=== PATIENT | male | born 1970 | race Caucasian/White ===

== ENCOUNTER 2020-04-09 11:12 | Inpatient (IN) | payer OTHER ==
[~2020-04-09] VITALS: Ht 172.7 cm; Wt 85.7 kg
[2020-04-09] MEDS ORDERED: ONDANSETRON HCL 4MG/2ML INJ IV STA (12:31)
[2020-04-09] MEDS ORDERED: MORPHINE SULFATE 4 MG/ML CPJ (NOT FOR IM USE) IV STA (12:31)
[2020-04-09 12:51] LABS: BASOPHILS % 0.8 % (0.0-2.0); HEMATOCRIT. 43.6 % (42.0-52.0); HEMOGLOBIN. 15.3 g/dL (14.0-18.0); LYMPHOCYTES % 25.3 % (20.0-50.0); MEAN CORPUSCULAR HEMOGLOBIN 31.3 pg (28.0-32.0); MEAN CORPUSCULAR VOLUME 89.3 fL (80.0-94.0); MEAN PLATELET VOLUME 8.1 fl (7.4-10.4); MONOCYTES % 8.7 % (2.0-8.0); NEUTROPHILS % 62.2 % (40.0-76.0); PLATELET 275 x1000/uL (130-400); RED BLOOD CELL COUNT 4.88 mill/uL (4.7-6.1); RED CELL DISTRIBUTION WIDTH 13.5 % (11.6-14.6)
[2020-04-09 12:57] LABS: CHLORIDE 106 mEq/L (98-107)
[2020-04-09 13:06] LABS: PROTHROMBIN TIME 10.1 sec (9.6-11.0)
[2020-04-09] MEDS ORDERED: HYDRALAZINE 20MG/ML VIAL IV PRN (15:15)
[2020-04-09] MEDS ORDERED: CLONIDINE 0.1MG TABLET PO PRN (15:15)
[2020-04-09] MEDS ORDERED: DEXTROSE 50% WATER 50ML SYRINGE IV PRN (15:15)
[2020-04-09] MEDS ORDERED: IPRATROPIUM/ALBUTEROL 0.5-3(2.5)MG/3ML NEB NEB PRN (15:15)
[2020-04-09] MEDS ORDERED: ACETAMINOPHEN 325MG TABLET PO PRN (15:15)
[2020-04-09] MEDS ORDERED: MAGNESIUM/ALUMINUM HYDROXIDE/SIMETHICONE 30ML UDC PO PRN (15:15)
[2020-04-09] MEDS ORDERED: DIPHENHYDRAMINE 50MG/ML VIAL IV PRN (15:15)
[2020-04-09] MEDS ORDERED: GUAIFENESIN 200MG/10ML SUGAR FREE UDC PO PRN (15:15)
[2020-04-09] MEDS ORDERED: LORAZEPAM 2MG/ML CPJ IV PRN (15:15)
[2020-04-09] MEDS ORDERED: ENOXAPARIN 40MG/0.4ML SYR SUBCUT SCH (16:00)
[2020-04-09] MEDS: INSULIN LISPRO 100 UNITS/ML SUBCUT SCH ×2 (18:20→21:00)
[2020-04-09] MEDS: MORPHINE SULFATE 2 MG/ML CPJ (NOT FOR IM USE) IV PRN (18:46)
[2020-04-09] MEDS: ONDANSETRON HCL 4MG/2ML INJ IV PRN (18:47)
[2020-04-09] MEDS: BLOOD SUGAR DIAGNOSTIC STRIP TEST SCH ×2 (21:00→21:23)
[2020-04-09] MEDS ORDERED: HYDRALAZINE 10 MG in SODIUM CHLORIDE 0.9% 49.5 ML IV PRN (22:30)
[2020-04-09 23:50] VITALS: BP 153/85
[2020-04-10] VITALS (53 sets, daily range): BP systolic 60–153; BP diastolic 33–85
[2020-04-10] MEDS ORDERED: GLIP10TA10 PO (01:36)
[2020-04-10] MEDS ORDERED: SIMV-46 PO (01:36)
[2020-04-10] MEDS ORDERED: [UNRECOGNIZED DRUG - OTHER] SQ (01:36)
[2020-04-10] MEDS ORDERED: BENA5TAB6 PO (01:36)
[2020-04-10] MEDS ORDERED: NAP5EC PO (01:36)
[2020-04-10] MEDS ORDERED: METF-816 PO (01:36)
[2020-04-10] MEDS ORDERED: TAMS-11 PO (01:36)
[2020-04-10] MEDS ORDERED: METH-612 PO (01:36)
[2020-04-10] MEDS ORDERED: METO-396 PO (01:36)
[2020-04-10] MEDS: DEXAMETHASONE 4MG/ML 1ML VIAL IV SCH ×4 (01:44→17:32)
[2020-04-10] MEDS: MORPHINE SULFATE 2 MG/ML CPJ (NOT FOR IM USE) IV PRN ×2 (01:45→05:44)
[2020-04-10] MEDS: SODIUM CHLORIDE 0.9% INJ 3ML FLUSH IVF SCH ×3 (02:33→14:41)
[2020-04-10] MEDS: BLOOD SUGAR DIAGNOSTIC STRIP TEST SCH ×4 (05:44→21:45)
[2020-04-10 06:19] LABS: BASOPHILS % 0.4 % (0.0-2.0); EOSINOPHILS % 1.1 % (0.0-5.0); HEMATOCRIT. 44.2 % (42.0-52.0); HEMOGLOBIN. 15.6 g/dL (14.0-18.0); LYMPHOCYTES % 13.1 % (20.0-50.0); MEAN CORPUSCULAR HEMOGLOBIN 31.5 pg (28.0-32.0); MEAN CORPUSCULAR VOLUME 89.3 fL (80.0-94.0); MEAN PLATELET VOLUME 8.6 fl (7.4-10.4); MONOCYTES % 3.4 % (2.0-8.0); PLATELET 248 x1000/uL (130-400); RED BLOOD CELL COUNT 4.95 mill/uL (4.7-6.1)
[2020-04-10 06:25] LABS: CHLORIDE 104 mEq/L (98-107)
[2020-04-10] MEDS ORDERED: THROMBIN (BOVINE) 5000 UNITS/VIAL TOP ONE ×4 (07:18→12:41)
[2020-04-10] MEDS ORDERED: BACITRACIN 50,000 UNITS/VIAL ONE ×2 (07:19→07:56)
[2020-04-10] MEDS ORDERED: LIDOCAINE HCL/EPINEPHRINE 1%-EPI 1:100,000 20 ML VIAL ONE ×2 (07:19→07:56)
[2020-04-10] MEDS ORDERED: NORMAL SALINE 0.9% 10 ML SYR ONE (07:56)
[2020-04-10] MEDS ORDERED: ROCURONIUM BROMIDE 10MG/ML VIAL 5ML IV ONE ×2 (10:57→11:52)
[2020-04-10] MEDS ORDERED: MIDAZOLAM HCL 2 MG/2 ML VIAL ONE (10:57)
[2020-04-10] MEDS ORDERED: FENTANYL CITRATE/PF 50MCG/ML 2ML VIAL ONE (10:57)
[2020-04-10] MEDS ORDERED: PROPOFOL 200MG/20ML VIAL IV ONE (10:58)
[2020-04-10] MEDS ORDERED: DEXT 5%/0.9% NACL 1,000 ML IV SCH (11:30)
[2020-04-10] MEDS ORDERED: ONDANSETRON HCL 4MG/2ML INJ ONE (11:51)
[2020-04-10] MEDS ORDERED: LIDOCAINE HCL/PF 1% 10 MG/ML 5ML VIAL ONE (11:51)
[2020-04-10] MEDS ORDERED: SUCCINYLCHOLINE CHLORIDE 200MG/10ML IV ONE (11:51)
[2020-04-10] MEDS ORDERED: ALBUMIN HUMAN 12.5G/250ML (5%) IV ONE ×2 (12:41→12:59)
[2020-04-10] MEDS: INSULIN LISPRO 100 UNITS/ML SUBCUT SCH ×3 (12:50→22:18)
[2020-04-10] MEDS ORDERED: GLYCOPYRROLATE 0.2 MG/ML 2ML VIAL ONE (13:11)
[2020-04-10] MEDS ORDERED: HYDRALAZINE 20MG/ML VIAL IV PRN (13:45)
[2020-04-10] MEDS ORDERED: NICARDIPINE 100 MG in SODIUM CHLORIDE 0.9% 60 ML IV PRN (14:00)
[2020-04-10] MEDS ORDERED: CEFAZOLIN SODIUM 1000MG/VIAL IV SCH (14:00)
[2020-04-10] MEDS: CEFAZOLIN 1000MG PREMIX 50 ML IV SCH (17:11)
[2020-04-10] MEDS: MORPHINE SULFATE 4 MG/ML CPJ (NOT FOR IM USE) IV PRN (17:56)
[2020-04-10 20:39] LABS: HEMATOCRIT 30.8 % (42.0-52.0); HEMOGLOBIN 10.7 g/dL (14.0-18.0)
[2020-04-11] VITALS (51 sets, daily range): BP systolic 95–154; BP diastolic 43–84
[2020-04-11] MEDS: CEFAZOLIN 1000MG PREMIX 50 ML IV SCH ×3 (00:11→17:41)
[2020-04-11] MEDS: SODIUM CHLORIDE 0.9% 1,000 ML IV SCH ×3 (00:11→12:39)
[2020-04-11 04:53] LABS: CHLORIDE 113 mEq/L (98-107)
[2020-04-11 05:04] LABS: HEMOGLOBIN. 9.9 g/dL (14.0-18.0); MEAN CORPUSCULAR HEMOGLOBIN 31.7 pg (28.0-32.0); MEAN PLATELET VOLUME 8.5 fl (7.4-10.4); PLATELET 178 x1000/uL (130-400); RED BLOOD CELL COUNT 3.11 mill/uL (4.7-6.1); RED CELL DISTRIBUTION WIDTH 13.3 % (11.6-14.6)
[2020-04-11] MEDS: ONDANSETRON HCL 4MG/2ML INJ IV PRN (05:34)
[2020-04-11] MEDS: MORPHINE SULFATE 4 MG/ML CPJ (NOT FOR IM USE) IV PRN (05:35)
[2020-04-11] MEDS: BLOOD SUGAR DIAGNOSTIC STRIP TEST SCH ×4 (06:25→20:46)
[2020-04-11] MEDS: DEXAMETHASONE 4MG/ML 1ML VIAL IV SCH ×3 (06:29→17:42)
[2020-04-11] MEDS: INSULIN LISPRO 100 UNITS/ML SUBCUT SCH ×4 (06:30→21:06)
[2020-04-11] MEDS: MORPHINE SULFATE 2 MG/ML CPJ (NOT FOR IM USE) IV PRN ×3 (09:01→21:52)
[2020-04-11 09:51] LABS: PLATELET ESTIMATE NORMAL
[2020-04-11] MEDS ORDERED: HYDRALAZINE 10 MG in SODIUM CHLORIDE 0.9% 49.5 ML IV PRN (14:30)
[2020-04-11] MEDS: METOPROLOL TARTRATE 25MG TABLET PO SCH ×2 (15:36→21:15)
[2020-04-11] MEDS: BENAZEPRIL 5MG TABLET PO SCH (17:44)
[2020-04-12] MEDS: CEFAZOLIN 1000MG PREMIX 50 ML IV SCH ×3 (01:09→15:41)
[2020-04-12] MEDS: DEXAMETHASONE 4MG/ML 1ML VIAL IV SCH ×3 (01:11→12:00)
[2020-04-12] MEDS: SODIUM CHLORIDE 0.9% 1,000 ML IV SCH ×4 (01:29→17:40)
[2020-04-12] MEDS: MORPHINE SULFATE 2 MG/ML CPJ (NOT FOR IM USE) IV PRN ×4 (02:36→21:50)
[2020-04-12 04:00] VITALS: BP 109/73
[2020-04-12] MEDS: BLOOD SUGAR DIAGNOSTIC STRIP TEST SCH ×4 (06:23→21:46)
[2020-04-12 08:00] VITALS: BP 120/70
[2020-04-12] MEDS: BENAZEPRIL 5MG TABLET PO SCH (08:28)
[2020-04-12] MEDS: METOPROLOL TARTRATE 25MG TABLET PO SCH ×2 (08:29→20:53)
[2020-04-12] MEDS: INSULIN LISPRO 100 UNITS/ML SUBCUT SCH ×4 (08:30→21:47)
[2020-04-12 12:00] VITALS: BP 119/72
[2020-04-12 16:00] VITALS: BP 123/72
[2020-04-12 20:00] VITALS: BP 130/71
[2020-04-13] VITALS: BP 125/74
[2020-04-13] MEDS: SODIUM CHLORIDE 0.9% 1,000 ML IV SCH ×3 (01:44→18:08)
[2020-04-13] MEDS: MORPHINE SULFATE 2 MG/ML CPJ (NOT FOR IM USE) IV PRN ×2 (01:50→06:46)
[2020-04-13 04:00] VITALS: BP 135/74
[2020-04-13 06:30] LABS: BASOPHILS % 0.3 % (0.0-2.0); EOSINOPHILS % 1.1 % (0.0-5.0); HEMATOCRIT. 28.1 % (42.0-52.0); HEMOGLOBIN. 9.8 g/dL (14.0-18.0); MEAN CORPUSCULAR HEMOGLOBIN 31.7 pg (28.0-32.0); MEAN CORPUSCULAR VOLUME 90.4 fL (80.0-94.0); MEAN PLATELET VOLUME 8.6 fl (7.4-10.4); MONOCYTES % 8.6 % (2.0-8.0); PLATELET 190 x1000/uL (130-400); RED CELL DISTRIBUTION WIDTH 13.2 % (11.6-14.6)
[2020-04-13 06:34] LABS: CHLORIDE 109 mEq/L (98-107)
[2020-04-13] MEDS: BLOOD SUGAR DIAGNOSTIC STRIP TEST SCH ×4 (07:04→21:06)
[2020-04-13] MEDS: INSULIN LISPRO 100 UNITS/ML SUBCUT SCH ×4 (07:25→21:20)
[2020-04-13] MEDS: METOPROLOL TARTRATE 25MG TABLET PO SCH ×2 (08:32→21:06)
[2020-04-13] MEDS: BENAZEPRIL 5MG TABLET PO SCH (08:33)
[2020-04-13] MEDS ORDERED: POTASSIUM CHLORIDE 20MEQ TABLET SR PO NR (09:00)
[2020-04-13] MEDS: HYDROCODONE/ACETAMINOPHEN 10/325MG TABLET PO PRN ×3 (11:34→21:06)
[2020-04-13 12:00] VITALS: BP 117/52
[2020-04-13 16:00] VITALS: BP 117/79
[2020-04-13 20:00] VITALS: BP 133/73
[2020-04-14] VITALS: BP 94/52
[2020-04-14] MEDS: HYDROCODONE/ACETAMINOPHEN 10/325MG TABLET PO PRN ×3 (00:36→08:26)
[2020-04-14 04:00] VITALS: BP 132/76
[2020-04-14] MEDS: SODIUM CHLORIDE 0.9% 1,000 ML IV SCH (06:36)
[2020-04-14] MEDS: BLOOD SUGAR DIAGNOSTIC STRIP TEST SCH ×4 (07:26→20:22)
[2020-04-14 08:00] VITALS: BP 112/65
[2020-04-14] MEDS: BENAZEPRIL 5MG TABLET PO SCH (08:25)
[2020-04-14] MEDS: METOPROLOL TARTRATE 25MG TABLET PO SCH ×2 (08:26→20:22)
[2020-04-14] MEDS: DOCUSATE SODIUM 100MG CAPSULE PO PRN (08:26)
[2020-04-14] MEDS: INSULIN LISPRO 100 UNITS/ML SUBCUT SCH ×4 (08:27→20:48)
[2020-04-14 12:00] VITALS: BP 119/64
[2020-04-14] MEDS: MORPHINE SULFATE 4 MG/ML CPJ (NOT FOR IM USE) IV PRN (15:37)
[2020-04-14 16:00] VITALS: BP 129/74
[2020-04-14 20:00] VITALS: BP 121/60
[2020-04-14] MEDS: MORPHINE SULFATE 2 MG/ML CPJ (NOT FOR IM USE) IV PRN (20:23)
[2020-04-15] VITALS: BP 146/75
[2020-04-15] MEDS: MORPHINE SULFATE 2 MG/ML CPJ (NOT FOR IM USE) IV PRN ×5 (00:22→19:46)
[2020-04-15 04:00] VITALS: BP 125/70
[2020-04-15] MEDS: BLOOD SUGAR DIAGNOSTIC STRIP TEST SCH ×4 (06:31→21:47)
[2020-04-15 08:00] VITALS: BP 124/71
[2020-04-15] MEDS: BENAZEPRIL 5MG TABLET PO SCH (09:01)
[2020-04-15] MEDS: METOPROLOL TARTRATE 25MG TABLET PO SCH ×2 (09:02→21:40)
[2020-04-15] MEDS: INSULIN LISPRO 100 UNITS/ML SUBCUT SCH ×4 (09:37→22:31)
[2020-04-15 12:00] VITALS: BP 117/70
[2020-04-15 16:00] VITALS: BP 132/83
[2020-04-15 20:00] VITALS: BP 115/77
[2020-04-15] MEDS: HYDROCODONE/ACETAMINOPHEN 10/325MG TABLET PO PRN (23:37)
[2020-04-16] VITALS: BP 108/97
[2020-04-16 04:00] VITALS: BP 107/68
[2020-04-16] MEDS: BLOOD SUGAR DIAGNOSTIC STRIP TEST SCH ×4 (07:46→21:43)
[2020-04-16 08:00] VITALS: BP 108/69
[2020-04-16] MEDS: DOCUSATE SODIUM 100MG CAPSULE PO PRN (08:17)
[2020-04-16] MEDS: HYDROCODONE/ACETAMINOPHEN 10/325MG TABLET PO PRN ×3 (08:19→20:18)
[2020-04-16] MEDS: INSULIN LISPRO 100 UNITS/ML SUBCUT SCH ×4 (08:34→21:44)
[2020-04-16] MEDS: SODIUM CHLORIDE 0.9% 1,000 ML IV SCH (08:57)
[2020-04-16] MEDS: BENAZEPRIL 5MG TABLET PO SCH (08:58)
[2020-04-16] MEDS: METOPROLOL TARTRATE 25MG TABLET PO SCH ×2 (08:58→21:44)
[2020-04-16 12:00] VITALS: BP 111/74
[2020-04-16 16:00] VITALS: BP 110/66
[2020-04-16] MEDS ORDERED: NA PHOS,M-B/NA PHOS,DI-BA ENEMA 118ML PR PRN (17:45)
[2020-04-16] MEDS: LACTULOSE 20G/30ML UDC PO SCH ×2 (18:09→21:46)
[2020-04-16 20:00] VITALS: BP 115/68
[2020-04-17] VITALS: BP 128/77
[2020-04-17] MEDS: HYDROCODONE/ACETAMINOPHEN 10/325MG TABLET PO PRN ×4 (01:00→19:18)
[2020-04-17] MEDS: LACTULOSE 20G/30ML UDC PO SCH (02:00)
[2020-04-17 04:00] VITALS: BP 127/85
[2020-04-17] MEDS: BLOOD SUGAR DIAGNOSTIC STRIP TEST SCH ×4 (06:38→21:45)
[2020-04-17] MEDS: INSULIN LISPRO 100 UNITS/ML SUBCUT SCH ×4 (07:50→21:48)
[2020-04-17 08:00] VITALS: BP 106/59
[2020-04-17] MEDS: BISACODYL 10MG SUPP PR SCH (09:00)
[2020-04-17 12:00] VITALS: BP_SYST 122; BP_SYST 130; BP_DIAS 68; BP_DIAS 85
[2020-04-17] MEDS: METOPROLOL TARTRATE 25MG TABLET PO SCH ×2 (12:52→20:38)
[2020-04-17] MEDS: BENAZEPRIL 5MG TABLET PO SCH (12:53)
[2020-04-17 16:00] VITALS: BP 130/85
[2020-04-17 20:00] VITALS: BP 110/62
[2020-04-17] MEDS: SODIUM CHLORIDE 0.9% 1,000 ML IV SCH (20:41)
[2020-04-18] VITALS: BP 115/52
[2020-04-18] MEDS: HYDROCODONE/ACETAMINOPHEN 10/325MG TABLET PO PRN ×5 (00:53→16:12)
[2020-04-18 04:00] VITALS: BP 138/77
[2020-04-18 07:17] LABS: BASOPHILS % 0.9 % (0.0-2.0); EOSINOPHILS % 5.6 % (0.0-5.0); HEMATOCRIT. 29.5 % (42.0-52.0); HEMOGLOBIN. 10.4 g/dL (14.0-18.0); LYMPHOCYTES % 27.9 % (20.0-50.0); MEAN CORPUSCULAR HEMOGLOBIN 31.5 pg (28.0-32.0); MEAN CORPUSCULAR VOLUME 89.2 fL (80.0-94.0); MEAN PLATELET VOLUME 8.2 fl (7.4-10.4); MONOCYTES % 11.1 % (2.0-8.0); NEUTROPHILS % 54.5 % (40.0-76.0); PLATELET 325 x1000/uL (130-400); RED BLOOD CELL COUNT 3.31 mill/uL (4.7-6.1); RED CELL DISTRIBUTION WIDTH 13.3 % (11.6-14.6)
[2020-04-18 07:36] LABS: CHLORIDE 105 mEq/L (98-107)
[2020-04-18] MEDS: BLOOD SUGAR DIAGNOSTIC STRIP TEST SCH ×3 (07:38→17:57)
[2020-04-18 08:00] VITALS: BP 111/56
[2020-04-18] MEDS: METOPROLOL TARTRATE 25MG TABLET PO SCH (08:40)
[2020-04-18] MEDS: BENAZEPRIL 5MG TABLET PO SCH (08:41)
[2020-04-18] MEDS: INSULIN LISPRO 100 UNITS/ML SUBCUT SCH ×3 (08:42→18:04)
[2020-04-18] MEDS: DOCUSATE SODIUM 100MG CAPSULE PO PRN (08:44)
[2020-04-18] MEDS: BISACODYL 10MG SUPP PR SCH (08:45)
[2020-04-18 12:00] VITALS: BP 107/58
[2020-04-18 16:00] VITALS: BP 121/68
[2020-04-18 17:18] VITALS: BP 121/68
[2020-04-19] MEDS ORDERED: INSU100I24 SQ (02:47)
== END 2020-04-18 18:06 | DRG 519 ==
LOC: ER 11:12 → 6EST 14:27 → EDBEDREQ 14:32 → EDBEDREQTM 14:32 → ENRESERV 21:04 → MICUNO 04-10 13:36 → 6EST 04-11 13:30
PROVIDERS: ADMIT Internal Medicine; ATTEND Internal Medicine
PROC: 0SB20ZZ Excision of Lumbar Vertebral Disc, Open Approach (ICD-10-PCS; principal; 2020-04-10)
PROC: 30233N1 Transfusion of Nonautologous Red Blood Cells into Peripheral Vein, Percutaneous Approach (ICD-10-PCS; 2020-04-10)
DX: M48.061 Spinal stenosis, lumbar region without neurogenic claudication (principal); G95.20 Unspecified cord compression; G82.20 Paraplegia, unspecified; K59.2 Neurogenic bowel, not elsewhere classified; G99.2 Myelopathy in diseases classified elsewhere; M51.16 Intervertebral disc disorders with radiculopathy, lumbar region; Z20.828 Contact with and (suspected) exposure to other viral communicable diseases; I10 Essential (primary) hypertension; E11.9 Type 2 diabetes mellitus without complications; D64.9 Anemia, unspecified; E78.5 Hyperlipidemia, unspecified; M43.17 Spondylolisthesis, lumbosacral region; M43.16 Spondylolisthesis, lumbar region; M47.26 Other spondylosis with radiculopathy, lumbar region; K59.00 Constipation, unspecified; R29.6 Repeated falls; Z79.4 Long term (current) use of insulin; Z82.49 Family history of ischemic heart disease and other diseases of the circulatory system; Z83.3 Family history of diabetes mellitus; Z88.8 Allergy status to other drugs, medicaments and biological substances
CPT/HCPCS: 36415; 71045; 72100; 72148; 76000; 80048; 80053; 82962; 85014; 85018; 85025; 86850; 86900; 86920; 88304; 88311; 93005; 93306; 95863; 95925; 95926; 95928; 95929; 95940; 96374; 97110; 97116; 97162; 97166; 97530; 97535; 99285; J0330; J0690; J1100; J1815; J2250; J2270; J2405; J2704; J3010; J3490; J7030; J7042; P9016; P9041; U0003-CS

== ENCOUNTER 2020-04-18 18:11 | Inpatient (IN) | payer OTHER ==
[~2020-04-18] VITALS: Ht 172.7 cm; Wt 88.5 kg
[~2020-04-18 18:11] MED LIST: BENA5TAB6 PO; GLIP10TA10 PO; METF-816 PO; METH-612 PO; METO-396 PO; NAP5EC PO; SIMV-46 PO; TAMS-11 PO; [UNRECOGNIZED DRUG - OTHER] SQ
[2020-04-18 19:00] VITALS: BP 128/63
[2020-04-18 20:00] VITALS: BP 128/63
[2020-04-18] MEDS ORDERED: ACETAMINOPHEN 325MG TABLET PO PRN (20:45)
[2020-04-18] MEDS ORDERED: DEXTROSE 50% WATER 50ML SYRINGE IV PRN (20:45)
[2020-04-18] MEDS ORDERED: NA PHOS,M-B/NA PHOS,DI-BA ENEMA 118ML PR PRN (20:45)
[2020-04-18] MEDS ORDERED: DIPHENHYDRAMINE 50MG/ML VIAL IV PRN (20:45)
[2020-04-18] MEDS ORDERED: MORPHINE SULFATE 2 MG/ML CPJ (NOT FOR IM USE) IV PRN (20:45)
[2020-04-18] MEDS ORDERED: IPRATROPIUM/ALBUTEROL 0.5-3(2.5)MG/3ML NEB HHN PRN (20:45)
[2020-04-18] MEDS ORDERED: ONDANSETRON HCL 4MG/2ML INJ IV PRN (20:45)
[2020-04-18] MEDS ORDERED: CLONIDINE 0.1MG TABLET PO PRN (20:45)
[2020-04-18] MEDS ORDERED: MAGNESIUM/ALUMINUM HYDROXIDE/SIMETHICONE 30ML UDC PO PRN (20:45)
[2020-04-18] MEDS ORDERED: GUAIFENESIN 200MG/10ML SUGAR FREE UDC PO PRN (20:45)
[2020-04-18] MEDS ORDERED: DOCUSATE SODIUM 100MG CAPSULE PO PRN (20:45)
[2020-04-18] MEDS: SODIUM CHLORIDE 0.9% 1,000 ML IV SCH (21:41)
[2020-04-18] MEDS: METOPROLOL TARTRATE 25MG TABLET PO SCH (21:41)
[2020-04-18] MEDS: BLOOD SUGAR DIAGNOSTIC STRIP TEST SCH (21:42)
[2020-04-18] MEDS: INSULIN LISPRO 100 UNITS/ML SUBCUT SCH (21:58)
[2020-04-18] MEDS: HYDROCODONE/ACETAMINOPHEN 10/325MG TABLET PO PRN (22:02)
[2020-04-19 02:00] VITALS: BP 115/63
[2020-04-19] MEDS ORDERED: INSU100I24 SQ (02:47)
[2020-04-19] MEDS: HYDROCODONE/ACETAMINOPHEN 10/325MG TABLET PO PRN ×5 (03:09→21:36)
[2020-04-19] MEDS: BLOOD SUGAR DIAGNOSTIC STRIP TEST SCH ×4 (05:25→20:32)
[2020-04-19] MEDS: INSULIN LISPRO 100 UNITS/ML SUBCUT SCH ×4 (06:38→21:58)
[2020-04-19 07:28] LABS: BASOPHILS % 0.8 % (0.0-2.0); EOSINOPHILS % 4.8 % (0.0-5.0); HEMATOCRIT. 31.2 % (42.0-52.0); MEAN CORPUSCULAR HEMOGLOBIN 31.5 pg (28.0-32.0); MEAN CORPUSCULAR VOLUME 89.7 fL (80.0-94.0); MEAN PLATELET VOLUME 7.8 fl (7.4-10.4); MONOCYTES % 10.2 % (2.0-8.0); NEUTROPHILS % 54.2 % (40.0-76.0); PLATELET 366 x1000/uL (130-400); RED BLOOD CELL COUNT 3.48 mill/uL (4.7-6.1); RED CELL DISTRIBUTION WIDTH 13.4 % (11.6-14.6)
[2020-04-19 07:44] LABS: CHLORIDE 103 mEq/L (98-107)
[2020-04-19 08:20] VITALS: BP 113/62
[2020-04-19] MEDS: METOPROLOL TARTRATE 25MG TABLET PO SCH ×2 (08:49→20:32)
[2020-04-19] MEDS: BENAZEPRIL 5MG TABLET PO SCH (08:49)
[2020-04-19] MEDS: BISACODYL 10MG SUPP PR SCH (08:50)
[2020-04-19] MEDS: BISACODYL 5MG TABLET PO PRN (17:35)
[2020-04-19 20:00] VITALS: BP 98/59
[2020-04-20] MEDS: HYDROCODONE/ACETAMINOPHEN 10/325MG TABLET PO PRN ×3 (04:05→20:35)
[2020-04-20] MEDS: BLOOD SUGAR DIAGNOSTIC STRIP TEST SCH ×4 (05:43→20:40)
[2020-04-20] MEDS: BISACODYL 5MG TABLET PO PRN (06:32)
[2020-04-20] MEDS: INSULIN LISPRO 100 UNITS/ML SUBCUT SCH ×4 (06:37→21:29)
[2020-04-20 07:54] VITALS: BP 129/67
[2020-04-20] MEDS: BENAZEPRIL 5MG TABLET PO SCH (08:42)
[2020-04-20] MEDS: METOPROLOL TARTRATE 25MG TABLET PO SCH ×2 (08:42→20:36)
[2020-04-20] MEDS: BISACODYL 10MG SUPP PR SCH (08:48)
[2020-04-20] MEDS: SODIUM CHLORIDE 0.9% 1,000 ML IV SCH (14:00)
[2020-04-20 20:00] VITALS: BP 106/63
[2020-04-20] MEDS: ATORVASTATIN CALCIUM 10MG TABLET PO SCH (20:35)
[2020-04-21] MEDS: HYDROCODONE/ACETAMINOPHEN 10/325MG TABLET PO PRN ×5 (02:16→21:44)
[2020-04-21] MEDS: BLOOD SUGAR DIAGNOSTIC STRIP TEST SCH ×4 (05:51→21:36)
[2020-04-21 06:19] LABS: BASOPHILS % 0.7 % (0.0-2.0); EOSINOPHILS % 2.7 % (0.0-5.0); HEMATOCRIT. 31.7 % (42.0-52.0); HEMOGLOBIN. 11.2 g/dL (14.0-18.0); LYMPHOCYTES % 25.3 % (20.0-50.0); MEAN CORPUSCULAR HEMOGLOBIN 31.1 pg (28.0-32.0); MEAN CORPUSCULAR VOLUME 88.2 fL (80.0-94.0); MEAN PLATELET VOLUME 7.6 fl (7.4-10.4); MONOCYTES % 8.9 % (2.0-8.0); NEUTROPHILS % 62.4 % (40.0-76.0); PLATELET 381 x1000/uL (130-400); RED BLOOD CELL COUNT 3.59 mill/uL (4.7-6.1); RED CELL DISTRIBUTION WIDTH 13.9 % (11.6-14.6)
[2020-04-21 06:42] LABS: CHLORIDE 104 mEq/L (98-107)
[2020-04-21] MEDS: INSULIN LISPRO 100 UNITS/ML SUBCUT SCH ×4 (06:45→21:51)
[2020-04-21 06:49] LABS: TOTAL IRON BINDING CAPACITY 230 ug/dL (250-450)
[2020-04-21 06:56] LABS: FERRITIN 204 ng/mL (22-322)
[2020-04-21 07:34] VITALS: BP 101/49
[2020-04-21] MEDS: BENAZEPRIL 5MG TABLET PO SCH (08:03)
[2020-04-21] MEDS: ASPIRIN 81MG EC TABLET PO SCH (08:03)
[2020-04-21] MEDS: METOPROLOL TARTRATE 25MG TABLET PO SCH ×2 (08:04→21:43)
[2020-04-21] MEDS: BISACODYL 10MG SUPP PR SCH (08:04)
[2020-04-21 08:12] VITALS: BP 101/49
[2020-04-21] MEDS: SODIUM CHLORIDE 0.9% 1,000 ML IV SCH (09:25)
[2020-04-21] MEDS: ASCORBIC ACID 500 MG TABLET PO SCH (12:24)
[2020-04-21] MEDS: FERROUS SULFATE 325MG TABLET PO SCH ×2 (12:24→17:08)
[2020-04-21 15:25] LABS: FOLIC ACID (FOLATE) SERUM >20 ng/mL ng/mL (>5.38)
[2020-04-21 15:36] LABS: VITAMIN B12 SERUM >2000 pg/mL pg/mL (211-911)
[2020-04-21] MEDS: DOCUSATE SODIUM 100MG CAPSULE PO SCH (17:09)
[2020-04-21 20:00] VITALS: BP 117/64
[2020-04-21] MEDS: POLYETHYLENE GLYCOL 3350 (17GM) 1 DOSE PACK PO SCH (21:42)
[2020-04-21] MEDS: ATORVASTATIN CALCIUM 10MG TABLET PO SCH (21:42)
[2020-04-22] MEDS: HYDROCODONE/ACETAMINOPHEN 10/325MG TABLET PO PRN ×4 (02:15→21:25)
[2020-04-22] MEDS: BLOOD SUGAR DIAGNOSTIC STRIP TEST SCH ×4 (05:57→21:25)
[2020-04-22] MEDS: INSULIN LISPRO 100 UNITS/ML SUBCUT SCH ×4 (06:13→21:19)
[2020-04-22 08:20] VITALS: BP 133/73
[2020-04-22] MEDS: BENAZEPRIL 5MG TABLET PO SCH (08:31)
[2020-04-22] MEDS: ASPIRIN 81MG EC TABLET PO SCH (08:31)
[2020-04-22] MEDS: METOPROLOL TARTRATE 25MG TABLET PO SCH ×2 (08:31→21:00)
[2020-04-22] MEDS: FERROUS SULFATE 325MG TABLET PO SCH ×3 (08:31→16:34)
[2020-04-22] MEDS: ASCORBIC ACID 500 MG TABLET PO SCH (08:31)
[2020-04-22] MEDS: DOCUSATE SODIUM 100MG CAPSULE PO SCH ×3 (08:31→16:34)
[2020-04-22] MEDS: BISACODYL 10MG SUPP PR SCH (08:37)
[2020-04-22 20:00] VITALS: BP 105/60
[2020-04-22] MEDS: SODIUM CHLORIDE 0.9% 1,000 ML IV SCH (20:00)
[2020-04-22] MEDS: ATORVASTATIN CALCIUM 10MG TABLET PO SCH (21:12)
[2020-04-22] MEDS: POLYETHYLENE GLYCOL 3350 (17GM) 1 DOSE PACK PO SCH (21:12)
[2020-04-23 01:53] VITALS: BP 105/60
[2020-04-23] MEDS: HYDROCODONE/ACETAMINOPHEN 10/325MG TABLET PO PRN ×4 (02:54→18:56)
[2020-04-23] MEDS: BLOOD SUGAR DIAGNOSTIC STRIP TEST SCH ×4 (06:36→21:23)
[2020-04-23] MEDS: INSULIN LISPRO 100 UNITS/ML SUBCUT SCH ×3 (06:39→17:53)
[2020-04-23 06:43] LABS: CHLORIDE 102 mEq/L (98-107)
[2020-04-23 06:49] LABS: BASOPHILS % 0.8 % (0.0-2.0); EOSINOPHILS % 3.7 % (0.0-5.0); HEMATOCRIT. 32.8 % (42.0-52.0); HEMOGLOBIN. 11.6 g/dL (14.0-18.0); LYMPHOCYTES % 28.9 % (20.0-50.0); MEAN CORPUSCULAR HEMOGLOBIN 31.2 pg (28.0-32.0); MEAN CORPUSCULAR VOLUME 88.5 fL (80.0-94.0); MEAN PLATELET VOLUME 7.9 fl (7.4-10.4); MONOCYTES % 8.8 % (2.0-8.0); NEUTROPHILS % 57.8 % (40.0-76.0); PLATELET 353 x1000/uL (130-400); RED BLOOD CELL COUNT 3.71 mill/uL (4.7-6.1); RED CELL DISTRIBUTION WIDTH 13.6 % (11.6-14.6)
[2020-04-23 08:00] VITALS: BP 126/54
[2020-04-23] MEDS: DOCUSATE SODIUM 100MG CAPSULE PO SCH ×2 (09:00→17:41)
[2020-04-23] MEDS: BISACODYL 10MG SUPP PR SCH (09:00)
[2020-04-23] MEDS: BENAZEPRIL 5MG TABLET PO SCH (09:39)
[2020-04-23] MEDS: METOPROLOL TARTRATE 25MG TABLET PO SCH ×2 (09:39→21:21)
[2020-04-23] MEDS: ASPIRIN 81MG EC TABLET PO SCH (09:39)
[2020-04-23] MEDS: FERROUS SULFATE 325MG TABLET PO SCH ×3 (09:39→17:42)
[2020-04-23] MEDS: ASCORBIC ACID 500 MG TABLET PO SCH (09:40)
[2020-04-23] MEDS: GLIPIZIDE XL 2.5MG TABLET PO SCH (17:42)
[2020-04-23] MEDS: METFORMIN HCL 500MG TABLET PO SCH (17:42)
[2020-04-23 20:00] VITALS: BP 164/108
[2020-04-23] MEDS: ATORVASTATIN CALCIUM 10MG TABLET PO SCH (21:20)
[2020-04-23] MEDS: POLYETHYLENE GLYCOL 3350 (17GM) 1 DOSE PACK PO SCH (21:22)
[2020-04-23] MEDS: INSULIN GLARGINE UD 100 UNITS/ML SYR SUBCUT SCH (21:40)
[2020-04-24] MEDS: HYDROCODONE/ACETAMINOPHEN 10/325MG TABLET PO PRN ×5 (01:53→23:21)
[2020-04-24] MEDS: BLOOD SUGAR DIAGNOSTIC STRIP TEST SCH ×4 (06:00→20:49)
[2020-04-24] MEDS: BISACODYL 5MG TABLET PO PRN (06:18)
[2020-04-24] MEDS: INSULIN LISPRO 100 UNITS/ML SUBCUT SCH (06:41)
[2020-04-24 08:45] VITALS: BP 118/72
[2020-04-24] MEDS: METOPROLOL TARTRATE 25MG TABLET PO SCH ×2 (09:38→20:48)
[2020-04-24] MEDS: METFORMIN HCL 500MG TABLET PO SCH ×2 (09:38→17:04)
[2020-04-24] MEDS: ASPIRIN 81MG EC TABLET PO SCH (09:38)
[2020-04-24] MEDS: FERROUS SULFATE 325MG TABLET PO SCH ×3 (09:38→17:04)
[2020-04-24] MEDS: DOCUSATE SODIUM 100MG CAPSULE PO SCH ×2 (09:38→17:04)
[2020-04-24] MEDS: GLIPIZIDE XL 2.5MG TABLET PO SCH ×2 (09:38→17:04)
[2020-04-24] MEDS: BENAZEPRIL 5MG TABLET PO SCH (09:39)
[2020-04-24] MEDS: BISACODYL 10MG SUPP PR SCH (09:39)
[2020-04-24] MEDS: ASCORBIC ACID 500 MG TABLET PO SCH (09:40)
[2020-04-24] MEDS: INSULIN LISPRO (LOW DOSE) 100 UNITS/ML SUBCUT SCH ×2 (12:45→17:08)
[2020-04-24] MEDS ORDERED: LACTULOSE 20G/30ML UDC PO NR (16:00)
[2020-04-24] MEDS: SODIUM CHLORIDE 0.9% 1,000 ML IV SCH (19:00)
[2020-04-24] MEDS: LINAGLIPTIN 5MG TABLET PO SCH (19:36)
[2020-04-24 20:00] VITALS: BP 115/60
[2020-04-24] MEDS: ATORVASTATIN CALCIUM 10MG TABLET PO SCH (20:48)
[2020-04-24] MEDS: POLYETHYLENE GLYCOL 3350 (17GM) 1 DOSE PACK PO SCH (20:49)
[2020-04-24] MEDS: INSULIN GLARGINE UD 100 UNITS/ML SYR SUBCUT SCH (22:09)
[2020-04-25] MEDS: HYDROCODONE/ACETAMINOPHEN 10/325MG TABLET PO PRN ×5 (03:10→20:56)
[2020-04-25] MEDS: BLOOD SUGAR DIAGNOSTIC STRIP TEST SCH ×4 (06:59→20:54)
[2020-04-25] MEDS: INSULIN LISPRO (LOW DOSE) 100 UNITS/ML SUBCUT SCH ×3 (07:04→16:57)
[2020-04-25 08:00] VITALS: BP 141/79
[2020-04-25] MEDS: BENAZEPRIL 5MG TABLET PO SCH (09:00)
[2020-04-25] MEDS: BISACODYL 10MG SUPP PR SCH (09:00)
[2020-04-25] MEDS: LACTULOSE 20G/30ML UDC PO SCH (09:00)
[2020-04-25] MEDS: DOCUSATE SODIUM 100MG CAPSULE PO SCH ×2 (09:00→16:56)
[2020-04-25] MEDS: GLIPIZIDE XL 2.5MG TABLET PO SCH ×2 (09:06→16:55)
[2020-04-25] MEDS: METOPROLOL TARTRATE 25MG TABLET PO SCH ×2 (09:07→20:54)
[2020-04-25] MEDS: LINAGLIPTIN 5MG TABLET PO SCH (09:07)
[2020-04-25] MEDS: FERROUS SULFATE 325MG TABLET PO SCH ×3 (09:07→16:55)
[2020-04-25] MEDS: ASPIRIN 81MG EC TABLET PO SCH (09:07)
[2020-04-25] MEDS: METFORMIN HCL 500MG TABLET PO SCH ×2 (09:08→16:55)
[2020-04-25] MEDS: ASCORBIC ACID 500 MG TABLET PO SCH (09:08)
[2020-04-25] MEDS ORDERED: GABAPENTIN 300MG CAPSULE PO SCH (14:00)
[2020-04-25 20:00] VITALS: BP 159/96
[2020-04-25] MEDS: ATORVASTATIN CALCIUM 10MG TABLET PO SCH (20:54)
[2020-04-25] MEDS: POLYETHYLENE GLYCOL 3350 (17GM) 1 DOSE PACK PO SCH (20:54)
[2020-04-25] MEDS: GABAPENTIN 100MG CAPSULE PO SCH (21:01)
[2020-04-25] MEDS: INSULIN GLARGINE UD 100 UNITS/ML SYR SUBCUT SCH (21:03)
[2020-04-25 22:40] VITALS: BP 133/77
[2020-04-26] MEDS: HYDROCODONE/ACETAMINOPHEN 10/325MG TABLET PO PRN ×5 (02:45→22:46)
[2020-04-26] MEDS: GABAPENTIN 100MG CAPSULE PO SCH ×3 (05:30→21:18)
[2020-04-26] MEDS: BLOOD SUGAR DIAGNOSTIC STRIP TEST SCH ×4 (05:31→20:45)
[2020-04-26] MEDS: INSULIN LISPRO (LOW DOSE) 100 UNITS/ML SUBCUT SCH ×3 (06:48→16:59)
[2020-04-26 07:22] LABS: BASOPHILS % 0.9 % (0.0-2.0); EOSINOPHILS % 3.8 % (0.0-5.0); HEMATOCRIT. 34.1 % (42.0-52.0); HEMOGLOBIN. 11.7 g/dL (14.0-18.0); LYMPHOCYTES % 23.8 % (20.0-50.0); MEAN CORPUSCULAR HEMOGLOBIN 30.4 pg (28.0-32.0); MEAN PLATELET VOLUME 8.1 fl (7.4-10.4); MONOCYTES % 8.3 % (2.0-8.0); NEUTROPHILS % 63.2 % (40.0-76.0); PLATELET 363 x1000/uL (130-400); RED BLOOD CELL COUNT 3.83 mill/uL (4.7-6.1)
[2020-04-26 07:33] LABS: CHLORIDE 105 mEq/L (98-107)
[2020-04-26 07:43] LABS: T4 FREE 1.43 ng/dL (0.76-1.46)
[2020-04-26 08:00] VITALS: BP 152/76
[2020-04-26] MEDS: ASCORBIC ACID 500 MG TABLET PO SCH (08:55)
[2020-04-26] MEDS: ASPIRIN 81MG EC TABLET PO SCH (08:56)
[2020-04-26] MEDS: GLIPIZIDE XL 2.5MG TABLET PO SCH ×2 (08:57→17:00)
[2020-04-26] MEDS: FERROUS SULFATE 325MG TABLET PO SCH ×3 (08:57→16:51)
[2020-04-26] MEDS: METFORMIN HCL 500MG TABLET PO SCH ×2 (08:57→16:52)
[2020-04-26] MEDS: DOCUSATE SODIUM 100MG CAPSULE PO SCH ×2 (08:58→16:58)
[2020-04-26] MEDS: LINAGLIPTIN 5MG TABLET PO SCH (08:58)
[2020-04-26] MEDS: METOPROLOL TARTRATE 25MG TABLET PO SCH ×2 (08:58→20:42)
[2020-04-26] MEDS: LACTULOSE 20G/30ML UDC PO SCH (09:00)
[2020-04-26] MEDS: BISACODYL 10MG SUPP PR SCH (09:00)
[2020-04-26] MEDS: SODIUM CHLORIDE 0.9% 1,000 ML IV SCH (10:00)
[2020-04-26] MEDS: BENAZEPRIL 5MG TABLET PO SCH (12:49)
[2020-04-26 20:00] VITALS: BP 126/63
[2020-04-26] MEDS: ATORVASTATIN CALCIUM 10MG TABLET PO SCH (20:41)
[2020-04-26] MEDS: POLYETHYLENE GLYCOL 3350 (17GM) 1 DOSE PACK PO SCH (20:42)
[2020-04-26] MEDS: INSULIN GLARGINE UD 100 UNITS/ML SYR SUBCUT SCH (22:42)
[2020-04-27] MEDS: HYDROCODONE/ACETAMINOPHEN 10/325MG TABLET PO PRN ×2 (04:55→08:54)
[2020-04-27] MEDS: SODIUM CHLORIDE 0.9% 1,000 ML IV SCH (04:55)
[2020-04-27] MEDS: GABAPENTIN 100MG CAPSULE PO SCH (05:02)
[2020-04-27] MEDS: BLOOD SUGAR DIAGNOSTIC STRIP TEST SCH ×2 (05:35→11:15)
[2020-04-27] MEDS: INSULIN LISPRO (LOW DOSE) 100 UNITS/ML SUBCUT SCH ×2 (06:29→12:10)
[2020-04-27 08:22] VITALS: BP 143/90
[2020-04-27] MEDS: BISACODYL 10MG SUPP PR SCH (08:52)
[2020-04-27] MEDS: LACTULOSE 20G/30ML UDC PO SCH (08:52)
[2020-04-27] MEDS: ASCORBIC ACID 500 MG TABLET PO SCH (08:53)
[2020-04-27] MEDS: BENAZEPRIL 5MG TABLET PO SCH (08:53)
[2020-04-27] MEDS: LINAGLIPTIN 5MG TABLET PO SCH (08:53)
[2020-04-27] MEDS: ASPIRIN 81MG EC TABLET PO SCH (08:53)
[2020-04-27] MEDS: METOPROLOL TARTRATE 25MG TABLET PO SCH (08:53)
[2020-04-27] MEDS: FERROUS SULFATE 325MG TABLET PO SCH ×2 (08:53→12:08)
[2020-04-27] MEDS: DOCUSATE SODIUM 100MG CAPSULE PO SCH (08:53)
[2020-04-27] MEDS: METFORMIN HCL 500MG TABLET PO SCH (08:54)
[2020-04-27] MEDS: GLIPIZIDE XL 2.5MG TABLET PO SCH (09:37)
[2020-04-27 12:36] VITALS: BP 133/85
[2020-04-27 15:10] LABS: 25-HYDROXY VITAMIN D3 19 ng/mL (.)
== END 2020-04-27 13:10 | disposition home health service (06) | DRG 552 ==
PROVIDERS: ADMIT Physical Medicine & Rehabilitation Spinal Cord Injury Medicine; ATTEND Internal Medicine
DX: M51.16 Intervertebral disc disorders with radiculopathy, lumbar region (principal); G82.20 Paraplegia, unspecified; E46 Unspecified protein-calorie malnutrition; K59.2 Neurogenic bowel, not elsewhere classified; R53.81 Other malaise; R26.9 Unspecified abnormalities of gait and mobility; N31.9 Neuromuscular dysfunction of bladder, unspecified; I10 Essential (primary) hypertension; E78.5 Hyperlipidemia, unspecified; D50.9 Iron deficiency anemia, unspecified; D72.829 Elevated white blood cell count, unspecified; E11.65 Type 2 diabetes mellitus with hyperglycemia; M43.16 Spondylolisthesis, lumbar region; M47.26 Other spondylosis with radiculopathy, lumbar region; M48.061 Spinal stenosis, lumbar region without neurogenic claudication; M48.07 Spinal stenosis, lumbosacral region; R26.89 Other abnormalities of gait and mobility; R50.82 Postprocedural fever; Z79.4 Long term (current) use of insulin; Z82.49 Family history of ischemic heart disease and other diseases of the circulatory system; Z83.3 Family history of diabetes mellitus; Z68.29 Body mass index [BMI] 29.0-29.9, adult; Z79.899 Other long term (current) drug therapy
CPT/HCPCS: 36415; 80048; 80053; 82306; 82533; 82607; 82728; 82746; 82962; 83036; 83540; 83550; 83735; 84100; 84134; 84439; 84443; 84481; 84681; 85025; 93970; 97110; 97116; 97162; 97166; 97530; 97535; J1815; J7030